=== PATIENT | male | born 2000 | race Caucasian/White ===

== ENCOUNTER 2025-06-26 17:17 | Emergency (ER) | payer OTHER, SELFPAY ==
--- NOTE | 2025-06-26 17:18 | ED_ITS ---
HPI - General Adult General Chief complaint: Back Pain/Injury Stated complaint: Left Side Flank Pain Time Seen by Provider: 06/26/25 17:31 Source: patient, RN notes reviewed and old records reviewed Mode of arrival: ambulatory Limitations: no limitations History of Present Illness HPI narrative: 24-year-old male presents to the [facility] with concerns for intermittent left lower anterior rib pain. Currently with no pain. Denies any chest pain shortness of breath. Patient reports pain only with certain movements. Denies any injury. Treatments prior to arrival: NSAID Related Data Home Medications ?Medication ?Instructions ?Recorded ?Confirmed ?Last Taken ?Type No Home Medications 06/26/25 06/26/25 U nknown History Allergies Allergy/AdvReac Type Severity Reaction Status Date / Time No Known Allergies Allergy Verified 06/26/25 17:36 Review of Systems 2 Review of Systems: All systems reviewed & are unremarkable except as noted in HPI and below Constitutional: Constitutional: Reports no additional constitutional complaints Cardiovascular: Cardiovascular: Reports no additional cardiovascular complaints, Denies chest pain and Denies dyspnea Respiratory: Respiratory: Reports no additional respiratory complaints, Denies chest congestion, Denies cough and Denies dyspnea Gastrointestinal: Gastrointestinal: Reports no additional gastrointestinal complaints Musculoskeletal: Musculoskeletal: Reports as per HPI Integumentary/Breasts: Skin/Breast: Reports system reviewed and no additional complaints, except as docu PMFSH Past Medical History Medical History Rash Skin disease, fungal Surgical History Surgical History No history of previous surgery Family History Family History Grandparent Diabetes mellitus Heart disease Social History Social History Smoking status: Never smoker Alcohol intake: never Substance use: never Lack of Transportation: No Lack of Food: Never True Current Housing: I Have Housing Concerned About Future Housing: No Difficulty Paying Gas/Electric Bills: No Difficulty Paying for Meds: No Currently Unemployed: No Education: Don't Know Difficulty w/ Childcare or Family Care: No Living arrangements: with family Occupation/Education: occupation 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 There is no relevant family history pertinent to the patient complaint. Exam 2 Const: General: cooperative, healthy appearing, comfortable, no acute distress, well developed, alert and well nourished Nutritional Appearance: w ell nourished Orientation/consciousness: patient oriented x3 Limitations: no limitations HENMT: Head: normal to inspection Eyes: General: appearance normal, both eyes and all related structures A lignment and Position: alignment normal Neck: Neck: normal visual inspection, full ROM, no lymphadenopathy and no meningeal signs Chest: Chest palpation & inspection: normal inspection of the chest Chest/axillae images: 1. patient reports pain. Unable to reproduce pain. No rashes, erythema, ecchymosis. Patient denies any pain currently Resp: Effort & Inspection: normal respiratory effort and able to speak in complete sentences Auscultation: clear to auscultation bilaterally, no crackles, no rales, no rhonchi and no wheezes Cardio: Rate: regular rate Skin: General skin exam: normal color and no rashes or lesions noted Neuro: General: patient oriented x3, gait normal, moves all extremities and no meningeal signs Cognition (Neuro): normal cognition Speech: normal speech Gait exam (Neuro): Normal gait present Extrem: General: normal to inspection, full ROM, capillary refill normal and normal gait Psych: Appearance: grossly normal and well kempt Mental Status: mental status grossly normal Speech and movement: Normal speech and movement present and Clear speech present Affect: normal affect Attitude: cooperative Course Course Level of Care: Express Care Visit Vital Signs Vital signs: Vital Signs Temperature 97.1 F L 06/26/25 17:30 Pulse Rate 64 06/26/25 17:30 Respiratory Rate 18 06/26/25 17:30 Blood Pressure 149/64 H 06/26/25 17:30 Pulse Oximetry 100 06/26/25 17:30 Oxygen Delivery Room Air 06/26/25 17:30 Temperature 97.1 F L 06/26/25 17:30 Pulse Rate 64 06/26/25 17:30 Respiratory Rate 18 06/26/25 17:30 Blood Pressure 149/64 H 06/26/25 17:30 Pulse Oximetry 100 06/26/25 17:30 Oxygen Delivery Room Air 06/26/25 17:30 reviewed MDM MDM Narrative Medical decision making narrative: patient sitting in exam room. Patient is nontoxic, vitals stable. Patient reports intermittent anterior left lower rib pain, sharp. Intermittent based on his movement. No pain while sitting in room. Unable to reproduce pain. denies any injury. Denies any bruising or swelling. Exam showed no acute findings. No midline tenderness. Denied chest pain, shortness of breath. Denied fevers. Pain is not reproducible with palpation, no ecchymosis or erythema noted. Patient has concern for a dislocated muscle. Discussed doing an x-ray, discussed x-rays look at broken bones, patient declined patient is appropriate for outpatient treatment with close follow-up discussed doing a muscle relaxer which he declined. Discharge instructions reviewed with patient, as well as provided in writing per nursing staff. The instructions also include specific and strict return/GO TO THE ER as well as f/u information. All questions have been answered, and the patient deny any further questions with discharge and discharge plan. Some parts of this dictation were generated by voice recognition software and may contain typographical and/or grammatical inaccuracies. Differential Diagnosis Differential Diagnosis: Rib fracture, contusion, costochondritis, muscle sprain or strain. Critical Care Time Critical Care Time Critical Care Time: No Discharge Plan Discharge Clinical Impression: Pain in rib Patient Disposition: Home Condition: Stable Instructions: Antibiotic Form, Muscle Strain (ED), Musculoskeletal Pain (ED) Additional Instructions: Take Motrin as needed for pain follow-up with primary care provider for new or worsening symptoms go directly to the emergency room Patient Language: Kiswahili Prescriptions: No Action No Home Medications Follow-up/Referrals: UNKNOWN,DOCTOR [Non-Staff] Stand Alone Forms: Work/School Release IP Time of Disposition: 17:44
[2025-06-26 17:30] VITALS: BP 149/64; PULSE 64; RESP 18; TEMP 36.2; O2SAT 100
== END 2025-06-26 17:50 | disposition home or self-care (01) ==
PROVIDERS: Emergency Provider Nurse Practitioner
DX: R07.89 Other chest pain (principal)
CPT/HCPCS: 99212; G0463